=== PATIENT | male | born 1970 | race Caucasian/White ===

== ENCOUNTER 2022-01-10 14:34 | Emergency (ER) | payer MEDICAID ==
[~2022-01-10] VITALS: Ht 172.7 cm; Wt 98.6 kg
[2022-01-10 14:45] VITALS: BP 124/85
[2022-01-10] MEDS ORDERED: HYDROcodone/acetaminophen 10/325mg tab PO ONE (15:35)
[2022-01-10] MEDS ORDERED: HYDR-3965 PO (17:03)
== END 2022-01-10 17:24 | disposition home or self-care (01) ==
LOC: ER 14:35
DX: S92.002A Unspecified fracture of left calcaneus, initial encounter for closed fracture (principal); Y30.XXXA Falling, jumping or pushed from a high place, undetermined intent, initial encounter; Y93.39 Activity, other involving climbing, rappelling and jumping off; Y92.89 Other specified places as the place of occurrence of the external cause; Y99.8 Other external cause status
CPT/HCPCS: 29515; 73630; 99283